=== PATIENT | female | born 1975 | race American Indian/Alaskan Native ===

== ENCOUNTER 2016-11-27 21:10 | Emergency (ER) | payer OTHER ==
[2016-11-27] MEDS ORDERED: CATAPRES PO ONE (22:30)
[2016-11-27] MEDS ORDERED: NACL 0.9% 500 ML IR ONE (22:34)
--- NOTE | 2016-11-27 22:34 | Emergency Department Report ---
HPI - General Chief Complaint: Earache Time Seen by Provider: 11/27/16 22:20 - HPI HPI: 41-year-old female presents today with bilateral ear fullness that worsened today. Patient states that her left ear has been feeling full 3 months. Her right ear canal of the felt similar 1 week ago and worsened today. Denies ear pain, discharge, and fever, chills, nausea, vomiting, chest pain, shortness of breath, abdominal pain. Patient tried putting peroxide in right ear without relief. Denies injury or trauma. Positive for history of similar symptoms. Positive for history of hypertension. Patient usually takes Norvasc 10 mg with her last dose being yesterday morning. Patient states that she ran out of her medication and has not taken her dose for today. ED Past Medical Hx - Past Medical History Previous Medical History?: No - Surgical History Past Surgical History?: No - Social History Smoking Status: Current Every Day Smoker Substance Use Type: Alcohol - Medications Home Medications: Home Medications Medication Instructions Recorded Confirmed Last Taken Type amLODIPine [Norvasc] 10 mg PO DAILY #30 tablet 11/27/16 Unknown Rx ED Review of Systems ROS: Stated complaint: EAR PAIN Other details as noted in HPI Constitutional: denies: chills, fever, malaise Eyes: denies: eye pain ENT: other (ear fullness). denies: ear pain, throat pain, congestion Respiratory: denies: cough, shortness of breath, wheezing Cardiovascular: denies: chest pain, palpitations Endocrine: no symptoms reported Gastrointestinal: denies: abdominal pain, nausea, vomiting Neurological: denies: headache, weakness Physical Exam - Physical Exam Vital Signs: Vital Signs 11/27/16 11/27/16 22:12 22:28 Temperature 98.3 F Pulse Rate 75 70 Respiratory 18 20 Rate Blood Pressure 156/111 Blood Pressure 178/111 [Left] O2 Sat by Pulse 100 98 Oximetry Physical Exam: GENERAL: The patient is well-developed and well-nourished. Patient is in NAD. HEAD: Normocephalic. Atraumatic. EYES: PERRL. EARS: Left external auditory canals and tympanic membranes clear. Cerumen impaction noted right ear. No mastoid tenderness to palpation. NOSE: Normal nasal mucosa with no nasal discharge. THROAT: No erythema, swelling or exudates. NECK: Supple, nontender, without lymphadenopathy. No meningitic signs are noted. CHEST/LUNGS: Clear to auscultation throughout. HEART/CARDIOVASCULAR: Regular rate and rhythm. No murmurs, rubs or gallops. ABDOMEN: Abdomen is soft, nontender. Bowel sounds normoactive. No guarding or rebound tenderness. EXTREMITIES: Peripheral pulses intact. Capillary refill less than 2 seconds. NEURO: Alert and oriented x 3. Normal gait. ED Course Vital Signs 11/27/16 11/27/16 22:12 22:28 Temperature 98.3 F Pulse Rate 75 70 Respiratory 18 20 Rate Blood Pressure 156/111 Blood Pressure 178/111 [Left] O2 Sat by Pulse 100 98 Oximetry - Reevaluation(s) Reevaluation #1: 11/27/16 23:20 Patient reports symptomatic relief post ear irrigation. ED Medical Decision Making - Lab Data Vital Signs 11/27/16 11/27/16 11/27/16 22:12 22:28 22:51 Temperature 98.3 F Pulse Rate 75 70 70 Respiratory 18 20 Rate Blood Pressure 156/111 178/118 Blood Pressure 178/111 [Left] O2 Sat by Pulse 100 98 Oximetry 11/27/16 11/27/16 23:22 23:25 Temperature Pulse Rate 75 Respiratory 18 18 Rate Blood Pressure Blood Pressure 169/104 [Left] O2 Sat by Pulse 97 97 Oximetry - Medical Decision Making 40-year-old female presents today with right cerumen impaction. Her ear was irrigated and patient reported symptomatic relief post-irrigation. A referral for ENT specialist has been provided. Explained to patient that her blood pressure was elevated today. Emphasized the importance of follow up with primary care physician and explained to patient that uncontrolled hypertension can lead to long-term complications of hypertension/elevated blood pressure including stroke, heart attack, disability, , paralysis, permanent loss of quality of life. Patient expressed understanding. Patient is in no acute distress at this time. She will be discharged home and is encouraged to follow up with a primary care provider. She is encouraged to return to the emergency room for any worsening symptoms. Critical care attestation.: If time is entered above; I have spent that time in minutes in the direct care of this critically ill patient, excluding procedure time. ED Disposition Clinical Impression: Cerumen impaction Qualifiers: Laterality: right Qualified Code(s): H61.21 - Impacted cerumen, right ear HTN (hypertension) Qualifiers: Hypertension type: essential hypertension Qualified Code(s): I10 - Essential ( primary) hypertension Disposition: DISCHARGED TO HOME OR SELFCARE Is pt being admited?: No Does the pt Need Aspirin: No Condition: Stable Instructions: Cerumen Impaction (ED), Hypertension (ED) Additional Instructions: Follow-up with primary care provider. Return to the emergency department if symptoms worsen. An ENT referral has been provided for your convenience. Prescriptions: amLODIPine [Norvasc] 10 mg PO DAILY #30 tablet Referrals: PRIMARY CARE [Primary Care Provider] - 3-5 Days ENT [facility] [Provider Group] - 3-5 Days ENT [facility] [Provider Group] - 3-5 Days Forms: Work/School Release Form(ED) Time of Disposition: 23:27
[2016-11-27 23:23] VITALS: BP 169/104
== END 2016-11-27 23:45 | disposition home or self-care (01) ==
LOC: ED 21:10
DX: H61.21 Impacted cerumen, right ear (principal); I10 Essential (primary) hypertension; F17.200 Nicotine dependence, unspecified, uncomplicated

== ENCOUNTER 2018-04-27 23:37 | Emergency (ER) | payer SELFPAY ==
[2018-04-28] MEDS ORDERED: TYLENOL ONE (00:19)
[2018-04-28 00:20] VITALS: BP 186/143
[2018-04-28] MEDS ORDERED: TYLENOL PO ONE (00:20)
--- NOTE | 2018-04-28 01:34 | Cat Scan Report ---
FINAL REPORT PROCEDURE: CT HEAD/BRAIN WO CON TECHNIQUE: Computerized tomography of the head was performed without contrast material. HISTORY: moe x1 wk; pain worsening COMPARISON: No prior studies are available for comparison. FINDINGS: Skull and scalp: Normal. Paranasal sinuses: Normal. Ventricles and subarachnoid spaces: Normal. Cerebrum: No evidence of hemorrhage, acute infarction or mass . Cerebellum and brainstem: No evidence of hemorrhage, acute infarction or mass. Vasculature: Normal. Comments: None. IMPRESSION: There is no evidence of an acute intracranial process
== END 2018-04-28 02:26 ==
LOC: ED 23:37
DX: I10 Essential (primary) hypertension (principal); Z53.21 Procedure and treatment not carried out due to patient leaving prior to being seen by health care provider
CPT/HCPCS: 70450; 93005; 93010

== ENCOUNTER 2020-09-11 12:05 | Emergency (ER) | payer SELFPAY ==
--- NOTE | 2020-09-11 13:12 | Emergency Department Report ---
ED General Adult HPI - General Stated complaint: NOSE BLEEDING Time Seen by Provider: 09/11/20 12:50 - History of Present Illness Initial comments: This pleasant 45-year-old female presents the emergency department chief complaint of a nosebleed that started this morning. Patient reports the bleeding was controlled within a few minutes. Primarily came out of the right nostril. She denies any injuries. She reports a history of hypertension and has been out of her medications for quite a while. She denies any other symptoms. She denies any associated fever, chills, night sweats, headache, dizziness, blurry vision, nausea, vomiting, diarrhea, chest pain, shortness of breath, weakness or any other associated symptoms. - Related Data Previous Rx's Medication Instructions Recorded Last Taken Type amLODIPine 10 mg PO DAILY #30 tablet 09/11/20 Unknown Rx Allergies Allergy/AdvReac Type Severity Reaction Status Date / Time No Known Allergies Allergy Verified 11/27/16 22:12 ED Review of Systems ROS: Stated complaint: NOSE BLEEDING Other details as noted in HPI Comment: All other systems reviewed and negative Constitutional: denies: chills, fever Eyes: denies: eye pain, eye discharge, vision change ENT: as per HPI, epistaxis. denies: ear pain, throat pain Respiratory: denies: cough, shortness of breath, wheezing Cardiovascular: denies: chest pain, palpitations Endocrine: no symptoms reported Gastrointestinal: denies: abdominal pain, nausea, diarrhea Genitourinary: denies: urgency, dysuria, discharge Musculoskeletal: denies: back pain, joint swelling, arthralgia Skin: denies: rash, lesions Neurological: denies: headache, weakness, paresthesias Psychiatric: denies: anxiety, depression Hematological/Lymphatic: denies: easy bleeding, easy bruising ED Past Medical Hx - Past Medical History Hx Hypertension: Yes - Social History Smoking Status: Current Every Day Smoker Substance Use Type: None - Medications Home Medications: Home Medications Medication Instructions Recorded Confirmed Last Taken Type amLODIPine 10 mg PO DAILY #30 tablet 09/11/20 Unknown Rx ED Physical Exam - General General appearance: alert, in no apparent distress - Head Head exam: Present: atraumatic, normocephalic - Eye Eye exam: Present: normal appearance, PERRL, EOMI Pupils: Present: normal accommodation - ENT ENT exam: Present: normal exam, normal orophraynx, mucous membranes moist - Neck Neck exam: Present: normal inspection, full ROM. Absent: tenderness, meningismus - Respiratory Respiratory exam: Present: normal lung sounds bilaterally. Absent: respiratory distress, wheezes, rales, rhonchi, stridor - Cardiovascular Cardiovascular Exam: Present: regular rate, normal rhythm, normal heart sounds. Absent: systolic murmur, diastolic murmur, rubs, gallop - GI/Abdominal GI/Abdominal exam: Present: soft, normal bowel sounds. Absent: distended, guarding, rebound, rigid - Extremities Exam Extremities exam: Present: normal inspection, full ROM, normal capillary refill. Absent: tenderness - Back Exam Back exam: Present: normal inspection, full ROM. Absent: tenderness, CVA tenderness (R), CVA tenderness (L) - Neurological Exam Neurological exam: Present: alert, oriented X3, CN II-XII intact, normal gait, other (Normal finger-nose, normal heel chapa, negative Romberg sign, no focal neurologic deficits) - Psychiatric Psychiatric exam: Present: normal affect, normal mood - Skin Skin exam: Present: warm, dry, intact, normal color. Absent: rash ED Medical Decision Making - Medical Decision Making Patient is nontoxic and in no acute distress. Her vital signs show that she is very hypertensive. She is otherwise asymptomatic. According to the [place] [employer] with her asymptomatic hypertension there is no emergent indication to lower her blood pressure. She is usually taking amlodipine 10 mg which she has been off for many months. I will refill this medication and recommended frequent blood pressure checks and follow-up with her primary care doctor soon as possible. Recommend she return to the emergency department medially she if she develops any changing or worsening symptoms. As far as her nose bleeding there is no active bleeding in the emergency department. There is no source of bleeding identified. There is no blood in the posterior pharynx and no blood from the posterior plexus. She is otherwise stable and in no acute distress. Recommend she return to the ER with any change or worsening symptoms. She verbalized understand these instructions and all of her questions were answered. - Differential Diagnosis Asymptomatic hypertension, epistaxis, anxiety Critical care attestation.: If time is entered above; I have spent that time in minutes in the direct care of this critically ill patient, excluding procedure time. ED Disposition Clinical Impression: Mild epistaxis Asymptomatic chronic venous hypertension Qualifiers: Laterality: unspecified laterality Qualified Code(s): I87.309 - Chronic venous hypertension (idiopathic) without complications of unspecified lower extremity Disposition: TO HOME OR SELFCARE Is pt being admited?: No Condition: Stable Instructions: Hypertension, Adult, [id number] Prescriptions: amLODIPine 10 mg PO DAILY #30 tablet Referrals: ALLEN PARADA MD [Staff Physician] - 3-5 Days [facility] [Provider Group] - 3-5 Days Time of Disposition: 13:11
[2020-09-11 13:23] VITALS: BP 200/126
== END 2020-09-11 13:30 | disposition home or self-care (01) ==
LOC: ED 12:05
DX: R04.0 Epistaxis (principal); I87.309 Chronic venous hypertension (idiopathic) without complications of unspecified lower extremity; F17.200 Nicotine dependence, unspecified, uncomplicated; Z79.899 Other long term (current) drug therapy
CPT/HCPCS: 99282